=== PATIENT | male | born 1995 | race Two or more races ===

== ENCOUNTER → 2018-08-11 | Outpatient (CLI) | payer BC ==
--- NOTE | 2018-08-13 12:58 | RT HOLTER TEST ---
FACILITY: [facility] - [place] PATIENT NAME: CYNTHIA LEDESMA : [id number] MR: [id number] V: [id number] EXAM DATE: ORDERING PHYSICIAN: ELSIE HENRY TECHNOLOGIST: MAJO Hook-up date: 2018-08-11 09:21:00 Duration: 47:59:00 Test Indications: PALPITATIONS Medications: N/A [id number] QRS complexes 4 Ventricular ectopics which represent <1 % of total QRS comp. 182 Supraventricular ectopics which represent <1 % of total QRS comp. * Paced QRS complexes which represent % of total QRS comp. VENTRICULAR ECTOPY 4 Isolated 0 Bigeminal Cycles 0 Couplets 0 Runs 0 Beats in Runs * Beats LONGEST at * BPM at :: -- * Beats FASTEST at * BPM at :: -- SUPRAVENTRICULAR ECTOPY 110 Isolated 36 Couplets 0 Runs 0 Beats in Runs * Beats LONGEST at * BPM at :: -- * Beats FASTEST at * BPM at :: -- HEART RATES 39 MIN at 07:16:40 2018-08-12 72 AVG 193 MAX at 20:17:04 2018-08-12 LONGEST RR 1.704 secs at 06:11:21 2018-08-12 S-T LEVELS Channel 1 -12.800 mm MIN at 09:21:00 2018-08-11.800 mm MAX at 09:21:00 2018-08-11 Channel 2 -12.800 mm MIN at 09:21:00 2018-08-11.800 mm MAX at 09:21:00 2018-08-11 Channel 3 -12.800 mm MIN at 09:21:00 2018-08-11.800 mm MAX at 09:21:00 2018-08-11 Occasional Premature ventricular complexes Occasional Premature supraventricular complexes Sinus bradycardia Confirmed by ELSIE NIXON ([id number]) on 08/13/2018 12:57:37 PM Referred By: Overread By: ELSIE NIXON
== END ==
LOC: RESP 10:00
PROVIDERS: ATTEND Family Medicine
DX: R00.2 Palpitations (principal)
CPT/HCPCS: 93225